=== PATIENT | female | born 1980 | race Caucasian/White ===

== ENCOUNTER → 2021-05-10 07:41 | Outpatient (CLI) | payer MEDICAID, SELFPAY ==
--- NOTE | 2021-05-10 09:25 | NEURO ---
NCS and/or EMG Patient Report Ordering Doctor: Parish Nguyen DATE OF SERVICE: 05/10/21 Indication: Bilateral hand pain and numbness that will extend into the forearms. Symptoms exacerbated by sleep, driving and other activities. Improved with steroid injection to the wrists. Evaluate for signs of median neuropathy. Findings: Nerve conduction studies were performed in the right and left upper extremities. The right median motor study recording the abductor pollicis brevis showed a normal amplitude, borderline distal latency and normal conduction velocity. The right ulnar motor study recording the abductor digiti minimi showed a normal amplitude, normal distal latency and normal conduction velocity. No conduction block or focal slowing was present across the elbow. The right median sensory response recording digit two showed a normal amplitude, borderline latency and mildly slowed conduction velocity. The right ulnar sensory response recording digit five showed a normal amplitude, latency and conduction velocity. The right radial sensory response recording over the extensor snuff box showed a normal amplitude, latency and conduction velocity. Right median-ulnar lumbrical / interosseous motor latencies showed a prolonged median latency compared to the ulnar. The left median motor study recording the abductor pollicis brevis showed a normal amplitude, normal distal latency and normal conduction velocity. The left ulnar motor study recording the abductor digiti minimi showed a normal amplitude, normal distal latency and normal conduction velocity. No conduction block or focal slowing was present across the elbow. The left median sensory response recording digit two showed a normal amplitude, borderline latency and mildly slowed conduction velocity. The left ulnar sensory response recording digit five showed a normal amplitude, latency and conduction velocity. The left radial sensory response recording over the extensor snuff box showed a normal amplitude, latency and conduction velocity. Left median-ulnar lumbrical / interosseous motor latencies showed a prolonged median latency compared to the ulnar. Needle EMG of the left upper extremity and cervical paraspinal muscles was performed. No denervation was seen in any muscle. Motor units in the left abductor pollicis brevis were slightly large, but otherwise unremarkable. All other motor unit morphology, activation and recruitment patterns were normal. Limited needle EMG of the right upper extremity was performed due to the symmetry of symptoms and the paucity of findings in the left extremity. No denervation was seen in the right abductor pollicis brevis. Motor units in the right abductor pollicis brevis were mildly polyphasic, but otherwise normal. Impression: This is a mildly abnormal study. There is electrophysiologic evidence suggestive of very mild, bilateral median neuropathies across the wrist. These findings would be compatible with the clinical diagnosis of carpal tunnel syndrome. In addition, there is no electrophysiologic evidence of a superimposed cervical radiculopathy in the left upper extremity. Chano Abrams D.O.
--- NOTE | 2021-05-15 10:25 | CPS ---
Patient presented for her NCS/EMG testing at 0730 on 05/10/21. Dr. Abrams informed the patient that there may be some tenderness at the sites of the needle examination, but that should go away. The patient called back at 2:00 pm on 05/10/21 with questions in regards to symptoms she's having post-testing. She was informed it would be at least an hour that her symptoms would last. The HEMOTHERAPIST who took the call informed the patient that the techs were still testing patients and were not available, but one of us would call her back when we were available. This tech called and left a message on her voicemail at 2:23 that same day (05/10/21), and explained that I was unsure what symptoms she was experiencing, but she may have bruising from the EMG and could be sore in those spots, and should improve as time goes on. This tech left our wireless number that we could be reached at and told her we would be at that number until approximately 3:00pm. No phone calls were received from the patient and both of us techs (Caesar/Abbie Montalvo) were here until 3:30 that day with the wireless phone on and with us. Dr. Abrams was informed of the patient's phone call as well, and he was willing to speak with the patient if she called while he was still here.
== END ==
PROVIDERS: PCP Internal Medicine; Referring Provider Internal Medicine; Visit Provider Internal Medicine
DX: G56.03 Carpal tunnel syndrome, bilateral upper limbs (principal); R20.0 Anesthesia of skin
CPT/HCPCS: 95885; 95886; 95913